=== PATIENT | female | born 1995 | race Caucasian/White ===

== ENCOUNTER 2017-03-31 13:37 | Emergency (ER) | payer OTHER ==
[2017-03-31 13:41] VITALS: RESP 16; O2SAT 97
--- NOTE | 2017-03-31 14:32 | ED.REPORT ---
HPI-Ear Pain/Problem/FB Date of Service March 31, 2017 ED Provider: Calderon Schroeder PA-C Luz Marina is an otherwise healthy 21-year-old female patient with a chief complaint of bilateral plugged ears. Reports a 3 day history of her ears then plugged on both sides with the development of blood in her right ear yesterday. Denies upper respiratory symptoms such as congestion, rhinorrhea, sore throat , sneezing, eye pain or watering. Denies fever. Denies swimming but admits to being in a hot tub. Denies use of Q-tips or inserting anything into her ears. Nursing Notes Stated Complaint: EARS PLUGGED/ BLOOD IN THEM Chief Complaint: ENT & Mouth Nursing Notes Reviewed: Yes Allergies: Coded Allergies: No Known Allergies (Unverified , 03/31/17) Scheduled Ciprofloxacin/Hydrocortisone Otic Susp (Cipro HC Otic Susp) 10 Ml Drops.susp 3 DROP BOTH_EARS BID General Time Seen by MD: 14:11 Chief Complaint Ear problem bilateral Past Medical History Past Medical History Denies Review of Systems Review of Systems Note: Negative unless stated otherwise in history of present illness Physical Exam General: Well appearing, well developed, well nourished, no acute distress. Head: Atraumatic, normocephalic. No mastoid tenderness. Eyes: No scleral icterus or injection. No discharge. PERRL. Vision grossly intact. Ears: Pinna and tragus nontender with manipulation. External auditory canals constricted but patent and without discharge. Small amount of blood noted in the right external auditory canal Tympanic membrane miner, shiny and translucent without fluid, bulging, retraction or perforation. Hearing grossly intact. Nose: Symmetrical, nares patent without discharge. No frontal or maxillary sinus tenderness. Mouth/pharynx: normal dentition, mucus membranes moist. Tonsils 2+ and symmetrical, uvula midline. Pharynx noninjected, no cobblestoning or discharge. Voice clear. Neck: No tenderness or lymphadenopathy. Trachea midline. Respiratory: No respiratory distress, no increased work of breathing. Speaks in complete sentences. Skin: Warm and dry. Neurological: Grossly nonfocal. Psychological: alert and oriented. Speech appropriate, linear and logical. Behavior appropriate. Initial Vital Signs Vital Signs (First) Date Time Temp Pulse Resp B/P Pulse Ox O2 Delivery O2 Flow Rate FiO2 03/31/17 13:41 36.8 84 16 97 Room Air Initial VS: Vital signs normal Re-Eval/Medical Decision Med Decision/Clinical Course I discussed this case with Dr. Padron. Otherwise healthy 21-year-old female presents with chief complaint of bilateral "plugged ears" over the last 3 days. Physical examination reveals external auditory canals, without discharge. Tympanic membranes are visualized and small amount of blood is noted in the right external auditory canal. Tenderness with manipulation of tragus. Negative mastoid tenderness. I believe this is otitis externa, concern for otitis media or malignant otitis externa, foreign body or cerumen impaction. I believe she is safe to be discharged home. Prescribed Cipro otic HC, advise regarding [id number] analgesia, primary care follow-up, emergency return precautions. Patient verbalizes understanding of and consent to plan. Discharge & Departure Primary Impression: Otitis externa Otitis externa type: unspecified type Laterality: bilateral Chronicity: acute Qualified Code: H60.503 - Unspecified acute noninfective otitis externa , bilateral Disposition: Home Discharge Condition All VS Reviewed: Yes Condition: Stable Patient Instructions: Otitis Externa (ED) Additional Instructions: Evaluation in the emergency department for plugged ears includes history and physical examination which reveal a case of otitis externa. This is an infection in the skin of your outer ear canals. I will give you a prescription for eardrops to be used 3 times a day for about 1 week. Symptoms should start to improve over the next couple of days, and be almost completely resolved in a week. Follow-up with your primary care provider or return to emergency department if your symptoms are not improving in 3 days. Return to emergency department for any new or worsening symptoms including increasing pain, fever. Referrals: [facility] EDSupervising Provider for APC: Giovanni Padron MD copies to: [facility] Calderon Schroeder PA-C March 31, 2017 14:32
[2017-03-31] MEDS ORDERED: CIPR10DR BOTH_EARS (14:42)
== END 2017-03-31 14:54 | disposition home or self-care (01) ==
LOC: SED 13:37
DX: H60.593 Other noninfective acute otitis externa, bilateral (principal)